=== PATIENT | male | born 1945 | race Two or more races ===

== ENCOUNTER 2016-06-06 09:03 | Emergency (ER) | payer MEDICARE ==
[~2016-06-06] VITALS: Ht 170.2 cm; Wt 61.2 kg
[~2016-06-06 09:03] MED LIST: ASPI81TA2 PO; HYDR-965 PO; HYDR1TAB26 PO; PROP40TA PO
[2016-06-06] MEDS ORDERED: IV NORMAL SALINE 1000ML BAG 1,000 ML IV SCH (09:37)
[2016-06-06] MEDS ORDERED: ONDANSETRON PF 4 MG/2 ML VIAL. IV ONE (09:45)
[2016-06-06] MEDS ORDERED: FENTANYL PF 100 MCG/2 ML VIAL. IV PRN (09:45)
--- NOTE | 2016-06-06 09:53 | PHYS DOC ---
Past Medical History Past Medical History: Arthritis, Hypertension, Other Additional Past Medical Histor: chronic back pain Past Surgical History: Knee Replacement, Other Additional Past Surgical Histo: hernia repair, orthopedic. Additional Information: 2 CIGARETTES A DAY Alcohol Use: None Drug Use: None Adult General Chief Complaint Chief Complaint: ABDOMINAL PAIN HPI HPI Patient is a 71 year old male who presents with complaint of left flank pain. Patient has been having pain for the past 2 days. Patient states that the pain is sharp and located along his left side and radiates to his left groin. Patient states he has had history of kidney stones but typically has had symptoms on his right side. Patient states that his current symptoms feel similar. Patient complains of 7 out of 10 pain. Patient took aspirin yesterday with no relief in symptoms. Patient has not had any associated nausea, vomiting , fever, bloody stools, or blood in his urine. Review of Systems Review of Systems Constitutional: Denies fever or chills [] Eyes: Denies change in visual acuity, redness, or eye pain [] HENT: Denies nasal congestion or sore throat [] Respiratory: Denies cough or shortness of breath [] Cardiovascular: Denies chest pain or edema [] GI: Denies abdominal pain, nausea, vomiting, bloody stools or diarrhea [] : Denies dysuria or hematuria [] Musculoskeletal: Left flank pain [] Integument: Denies rash or skin lesions [] Neurologic: Denies headache, focal weakness or sensory changes [] Current Medications Current Medications Current Medications Medications (Trade) Dose Ordered Sig/Oli Start Time Stop Time Status Last Admin Dose Admin Fentanyl Citrate 50 mcg 50 mcg PRN Q15MIN PRN 06/06/16 09:45 06/07/16 09:44 06/06/16 10:11 50 MCG Ketorolac Tromethamine (Toradol) 30 mg 1X ONCE 06/06/16 11:00 06/06/16 11:01 Ondansetron HCl (Zofran) 4 mg 1X ONCE 06/06/16 09:45 06/06/16 09:46 DC 06/06/16 10:11 4 MG Sodium Chloride (Iv Sodium Chloride 0.9% 1000ml Bag) 1,000 ml @ 1,000 mls/hr Q1H 06/06/16 09:37 06/06/16 10:36 DC 06/06/16 10:11 1,000 MLS/HR Allergies Allergies Allergies Coded Allergies Type Severity Reaction Last Updated Verified No Known Drug Allergies 07/07/13 No Physical Exam Physical Exam Constitutional: Alert, afebrile, appears in mild to moderate discomfort. [] HENT: Normocephalic, atraumatic, bilateral external ears normal, oropharynx moist, no oral exudates, nose normal. [] Eyes: PERRLA, EOMI, conjunctiva normal, no discharge. [] Neck: Normal range of motion, no tenderness, supple, no stridor. [] Cardiovascular:Heart rate regular rhythm, no murmur [] Lungs & Thorax: Bilateral breath sounds clear to auscultation [] Abdomen: Bowel sounds normal, soft, left upper quadrant abdominal tenderness at the midaxillary line, no masses, no pulsatile masses. [] Skin: Warm, dry, no erythema, no rash. [] Back: No midline tenderness, no direct CVA tenderness, no flank ecchymosis. [] Extremities: No tenderness, no cyanosis, no clubbing, ROM intact, no edema. [] Neurologic: Alert and oriented X 3, normal motor function, normal sensory function, no focal deficits noted. [] Current Patient Data Vital Signs Vital Signs Date Time Temp Pulse Resp B/P Pulse Ox O2 Delivery O2 Flow Rate FiO2 06/06/16 10:11 20 99 Room Air 06/06/16 09:21 98.2 97 178/82 98.2 Lab Values Laboratory Tests Test 06/06/16 09:50 White Blood Count 8.8x10^3/uL (4.0-11.0) Red Blood Count 4.07x10^6/uL (4.30-5.70) L Hemoglobin 12.9g/dL (13.0-17.5) L Hematocrit 37.8% (39.0-53.0) L Mean Corpuscular Volume 93fL (79-100) Mean Corpuscular Hemoglobin 32pg (25-35) Mean Corpuscular Hemoglobin Concent 34g/dL (31-37) Red Cell Distribution Width 14.4% (11.5-14.5) Platelet Count 208x10^3/uL (140-400) Neutrophils (%) (Auto) 73% (31-73) Lymphocytes (%) (Auto) 18% (24-48) L Monocytes (%) (Auto) 7% (0-9) Eosinophils (%) (Auto) 2% (0-3) Basophils (%) (Auto) 1% (0-3) Neutrophils # (Auto) 6.4x10^3uL (1.8-7.7) Lymphocytes # (Auto) 1.6x10^3/uL (1.0-4.8) Monocytes # (Auto) 0.6x10^3/uL (0.0-1.1) Eosinophils # (Auto) 0.2x10^3/uL (0.0-0.7) Basophils # (Auto) 0.1x10^3/uL (0.0-0.2) Urine Collection Type Unknown Urine Color Yellow Urine Clarity Clear Urine pH 6.5 Urine Specific [place] 1.015 Urine Protein Negativemg/dL (NEG-TRACE) Urine Glucose (UA) Negativemg/dL (NEG) Urine Ketones (Stick) Negativemg/dL (NEG) Urine Blood Small (NEG) Urine Nitrite Negative (NEG) Urine Bilirubin Negative (NEG) Urine Urobilinogen Dipstick 1.0mg/dL (0.2 mg/dL) Urine Leukocyte Esterase Negative (NEG) Urine RBC 6-10/HPF (0-2) Urine WBC 0/HPF (0-4) Urine Squamous Epithelial Cells Few/LPF Urine Bacteria 0/HPF (0-FEW) Sodium Level 142mmol/L (136-145) Potassium Level 3.7mmol/L (3.5-5.1) Chloride Level 107mmol/L (98-107) Carbon Dioxide Level 28mmol/L (21-32) Anion Gap 7 (6-14) Blood Urea Nitrogen 16mg/dL (8-26) Creatinine 1.0mg/dL (0.7-1.3) Estimated GFR (Cockcroft-Gault) 74.1 BUN/Creatinine Ratio 16 (6-20) Glucose Level 129mg/dL (70-99) H Calcium Level 8.5mg/dL (8.5-10.1) Total Bilirubin 0.2mg/dL (0.2-1.0) Aspartate Amino Transferase (AST) 18U/L (15-37) Alanine Aminotransferase (ALT) 20U/L (16-63) Alkaline Phosphatase 97U/L (46-116) Total Protein 7.0g/dL (6.4-8.2) Albumin 3.1g/dL (3.4-5.0) L Albumin/Globulin Ratio 0.8 (1.0-1.7) L Lipase 141U/L (73-393) Laboratory Tests 06/06/16 09:50 Laboratory Tests 06/06/16 09:50 EKG EKG Not performed [] Radiology/Procedures Radiology/Procedures [facility] [address] [place] [address] IMAGING REPORT Signed PATIENT: JAYDE GIFFORD ACCOUNT: [id number] : 1945 LOCATION: ER AGE: 71 SEX: M EXAM STATUS: REG ER ORD. PHYSICIAN: JERRY HARRINGTON MD REASON: left flank pain, history kidney stones PROCEDURE: ABDOMEN PELVIS WO CONTRAST ABDOMEN PELVIS WO CONTRAST History:Left flank pain, history of kidney stones. Technique: Noncontrast CT imaging was performed of the abdomen and pelvis, multiplanar reconstruction images submitted. Exposure: One or more of the following individualized dose reduction techniques were utilized for this exam: 1. Automated exposure control. 2. Adjustment of the mA and/or KV according to patient size. 3. Use of iterative reconstruction technique. Comparison: 03/11/2013 Findings:There are 3 small calculi of the right kidney up to 1 to 2 mm in size, approximate 6 calculi of the left kidney with the largest 2 to 3 mm. There is very mild left hydroureteronephrosis although no left ureteral calculus identified. There is no hydronephrosis on the right. There is calcification of the right posterior urinary bladder believed to be in the lumen, measuring 3 mm in size and not seen on previous exam. There is no significant abnormality of the limited visualized lung bases. There are fat-containing Bochdalek hernias bilaterally. Gallbladder is present without obvious intraluminal abnormality by CT. Accurate evaluation of the abdominal visceral organs is limited without intravenous contrast. There is no obvious focal abnormality of the liver, spleen, pancreas. Evaluation of bowel is limited without oral contrast. There is no significant bowel dilatation, free air, free fluid. There is multilevel lumbar facet degenerative change. There is mild/moderate degenerative disc disease at L3-4 and L4-5, mild spondylosis. Impression: 1.There is mild left hydroureteronephrosis although no ureteral calculus identified. There is a 3 mm calculus in the right urinary bladder lumen dependently likely due to recently passed calculus. There are bilateral renal calculi. DICTATED and SIGNED BY: CLIFFORD ANDERSEN MD DATE: 06/06/16 1018 CC: JERRY HARRINGTON MD; NO PCP ~ [] Course & Med Decision Making Course & Med Decision Making Pertinent Labs and Imaging studies reviewed. (See chart for details) The CT scan showed dilation of the left ureter with a calcification within the bladder lumen. This likely represents a recently passed ureteral stone which is the likely cause of the patient's symptoms. On reevaluation after treatment with fentanyl, Zofran, and IV fluid, the patient states he feels much better at this time. Patient was also given IV Toradol in the emergency department to further assist with pain control. Advised patient to follow-up with his primary doctor in the next 3-5 days. Patient will be given a small prescription and Dumas for any recurrent pain. Advised return to emergency department for any worsening symptoms. Patient voiced understanding and in agreement with treatment plan. Dragon Disclaimer Dragon Disclaimer This electronic medical record was generated, in whole or in part, using a voice recognition dictation system. Departure Departure Impression: Primary Impression: Ureteral colic Disposition: 01 HOME, SELF-CARE Condition: IMPROVED Referrals: NO PCP (PCP) Patient Instructions: Kidney Stones Additional Instructions: Follow-up with your primary doctor in 3-5 days. Use a urine strainer to ensure passage of stone. Return to the emergency department for any worsening symptoms. Scripts Hydrocodone/Apap 5-325 (Dumas 5-325 Tablet)1 Each Tablet1 Tab PO Q6HRS PRN PAIN #10 TAB Prov:JERRY HARRINGTON MD 06/06/16 JERRY HARRINGTON MD Jun 06, 2016 09:53
[2016-06-06 10:04] LABS: BILIRUBIN,URINE NEGATIVE (NEG); GLUCOSE,URINE NEGATIVE (NEG); NITRITE,URINE NEGATIVE (NEG); PH,URINE 6.5; PROTEIN,URINE NEGATIVE (NEG-TRACE)
[2016-06-06 10:05] LABS: BASO # 0.1 x10^3/uL (0.0-0.2); BASO % 1 % (0-3); EOS % 2 % (0-3); HEMATOCRIT 37.8 % (39.0-53.0); HEMOGLOBIN 12.9 g/dL (13.0-17.5); LYMPH # 1.6 x10^3/uL (1.0-4.8); LYMPH % 18 % (24-48); MEAN CORPUSCULAR HEMOGLOBIN 32 pg (25-35); MEAN CORPUSCULAR HGB CONC 34 g/dL (31-37); MEAN CORPUSCULAR VOLUME 93 fL (79-100); MONO % 7 % (0-9); NEUT % 73 % (31-73); PLATELET COUNT 208 x10^3/uL (140-400); RED BLOOD COUNT 4.07 x10^6/uL (4.30-5.70); RED CELL DISTRIBUTION WIDTH 14.4 % (11.5-14.5); WHITE BLOOD COUNT 8.8 x10^3/uL (4.0-11.0)
[2016-06-06 10:12] LABS: BACTERIA,URINE 0 /HPF (0-FEW); SQUAMOUS EPITHELIAL CELL,UR FEW /LPF; WBC,URINE 0 /HPF (0-4)
[2016-06-06 10:24] LABS: CALCIUM 8.5 mg/dL (8.5-10.1); GFR 74.1; POTASSIUM 3.7 mmol/L (3.5-5.1)
--- NOTE | 2016-06-06 10:28 | RAD ---
ABDOMEN PELVIS WO CONTRAST History:Left flank pain, history of kidney stones. Technique: Noncontrast CT imaging was performed of the abdomen and pelvis, multiplanar reconstruction images submitted. Exposure: One or more of the following individualized dose reduction techniques were utilized for this exam: 1. Automated exposure control. 2. Adjustment of the mA and/or KV according to patient size. 3. Use of iterative reconstruction technique. Comparison: 03/11/2013 Findings:There are 3 small calculi of the right kidney up to 1 to 2 mm in size, approximate 6 calculi of the left kidney with the largest 2 to 3 mm. There is very mild left hydroureteronephrosis although no left ureteral calculus identified. There is no hydronephrosis on the right. There is calcification of the right posterior urinary bladder believed to be in the lumen, measuring 3 mm in size and not seen on previous exam. There is no significant abnormality of the limited visualized lung bases. There are fat-containing Bochdalek hernias bilaterally. Gallbladder is present without obvious intraluminal abnormality by CT. Accurate evaluation of the abdominal visceral organs is limited without intravenous contrast. There is no obvious focal abnormality of the liver, spleen, pancreas. Evaluation of bowel is limited without oral contrast. There is no significant bowel dilatation, free air, free fluid. There is multilevel lumbar facet degenerative change. There is mild/moderate degenerative disc disease at L3-4 and L4-5, mild spondylosis. Impression: 1.There is mild left hydroureteronephrosis although no ureteral calculus identified. There is a 3 mm calculus in the right urinary bladder lumen dependently likely due to recently passed calculus. There are bilateral renal calculi.
[2016-06-06 10:30] LABS: ALBUMIN 3.1 g/dL (3.4-5.0); ALBUMIN/GLOBULIN RATIO 0.8 (1.0-1.7); TOTAL BILIRUBIN 0.2 mg/dL (0.2-1.0)
[2016-06-06] MEDS ORDERED: HYDR-971 PO (10:57)
[2016-06-06] MEDS ORDERED: KETOROLAC TROMETHAMINE 30 MG/ML SYRINGE. IV ONE (11:00)
[2016-06-06 11:03] VITALS: BP 175/77
== END 2016-06-06 11:33 | disposition home or self-care (01) ==
LOC: ER 09:03
DX: N23 Unspecified renal colic (principal); I10 Essential (primary) hypertension; G89.29 Other chronic pain; M19.90 Unspecified osteoarthritis, unspecified site; F17.210 Nicotine dependence, cigarettes, uncomplicated; Z98.890 Other specified postprocedural states
CPT/HCPCS: 36415; 74176; 80053; 81001; 83690; 85027; 96361; 96374; 96375; 99285; J1885; J2405; J3010; J7030

== ENCOUNTER 2018-06-05 14:29 | Emergency (ER) | payer MEDICARE ==
[~2018-06-05] VITALS: Ht 170.2 cm; Wt 59.4 kg
[~2018-06-05 14:29] MED LIST changes: +ASPI-630 PO; -ASPI81TA2 PO; +HYDR-3164 PO; +HYDR-3165 PO; -HYDR-965 PO
[2018-06-05 15:31] LABS: BASO # 0.1 x10^3/uL (0.0-0.2); BASO % 1 % (0-3); EOS % 1 % (0-3); HEMATOCRIT 41.6 % (39.0-53.0); HEMOGLOBIN 13.7 g/dL (13.0-17.5); LYMPH # 1.8 x10^3/uL (1.0-4.8); LYMPH % 20 % (24-48); MEAN CORPUSCULAR HEMOGLOBIN 31 pg (25-35); MEAN CORPUSCULAR HGB CONC 33 g/dL (31-37); MEAN CORPUSCULAR VOLUME 95 fL (79-100); MONO # 0.5 x10^3/uL (0.0-1.1); MONO % 6 % (0-9); NEUT # 6.5 x10^3uL (1.8-7.7); NEUT % 73 % (31-73); PLATELET COUNT 345 x10^3/uL (140-400); RED BLOOD COUNT 4.38 x10^6/uL (4.30-5.70)
[2018-06-05 15:32] LABS: BILIRUBIN,URINE SMALL (NEG); CLARITY,URINE CLEAR; COLOR,URINE YELLOW; NITRITE,URINE NEGATIVE (NEG); PH,URINE 5.5; PROTEIN,URINE 100 mg/dL (NEG-TRACE)
[2018-06-05 15:41] LABS: CALCIUM 9.2 mg/dL (8.5-10.1); GFR 73.7; POTASSIUM 3.6 mmol/L (3.5-5.1)
[2018-06-05 15:43] LABS: BACTERIA,URINE 0 /HPF (0-FEW); RBC,URINE RARE /HPF (0-2); WBC,URINE RARE /HPF (0-4)
[2018-06-05] MEDS ORDERED: ONDANSETRON PF 4 MG/2 ML VIAL. IV ONE (15:45)
[2018-06-05] MEDS ORDERED: fentaNYL PF VIAL 100 MCG/2 ML VIAL IV ONE (15:45)
[2018-06-05 15:48] LABS: ALBUMIN 3.7 g/dL (3.4-5.0); ALBUMIN/GLOBULIN RATIO 0.8 (1.0-1.7); TOTAL BILIRUBIN 0.2 mg/dL (0.2-1.0); TOTAL PROTEIN 8.2 g/dL (6.4-8.2)
--- NOTE | 2018-06-05 15:50 | RAD ---
PQRS Compliance statement: One or more of the following individualized dose reduction techniques were utilized for this examination: 1. Automated exposure control. 2. Adjustment of the mA and/or kV according to patient size. 3. Use of iterative reconstruction technique. Indication:Severe right flank pain TECHNIQUE: CT abdomen and pelvis without IV contrast with multiplanar reformats. COMPARISON: 06/06/2016 FINDINGS: Limited evaluation of solid abdominal and pelvic organs due to lack of IV contrast. Heart is normal in size. No pericardial or pleural effusion. Clear lung bases. Noncontrast appearance of the liver, spleen, gallbladder, pancreas, adrenals within normal limits. No right nephrolithiasis or hydronephrosis. 4 3-4 mm nonobstructing stones in the left kidney. No free pelvic fluid or ascites. No enlarged retroperitoneal or pelvic adenopathy. Mild diffuse atherosclerotic disease of the abdominal aorta. No bowel obstruction. Appendix is not visualized. No pneumoperitoneum. The prostate and seminal vesicles show no large mass. Urinary bladder demonstrates no radiopaque stones. No suspicious bony lesion. Impression: Limited evaluation of solid abdominal and pelvic organs due to lack of IV contrast. 1. Few nonobstructing left renal stones. No right-sided nephrolithiasis or hydronephrosis. Electronically signed by: Ahsan Garcia DO (06/05/2018 3:46 PM) [facility]
[2018-06-05 16:00] VITALS: BP 152/70
--- NOTE | 2018-06-05 16:02 | PHYS DOC ---
Past Medical History Past Medical History: Arthritis, Hypertension, Other Additional Past Medical Histor: chronic back pain Past Surgical History: Knee Replacement, Other Additional Past Surgical Histo: hernia repair, RT KNEE, LT FOOT Alcohol Use: None Drug Use: None Adult General Chief Complaint Chief Complaint: FLANK PAIN HPI HPI Patient is a 73 year old male who presents with right flank pain a history of kidney stones. The patient states that the pain is worsened over the past two days. He denies blood in his urine, nausea or vomiting. He has been taking over- the-counter pain medication with little relief. Review of Systems Review of Systems Constitutional: Denies fever or chills [] Eyes: Denies change in visual acuity, redness, or eye pain [] HENT: Denies nasal congestion or sore throat [] Respiratory: Denies cough or shortness of breath [] Cardiovascular: No additional information not addressed in HPI [] GI: Denies abdominal pain, nausea, vomiting, bloody stools or diarrhea [] : See history of present illness Musculoskeletal: See history of present illness Integument: Denies rash or skin lesions [] Neurologic: Denies headache, focal weakness or sensory changes [] Endocrine: Denies polyuria or polydipsia [] All other systems were reviewed and found to be within normal limits, except as documented in this note. Current Medications Current Medications Current Medications Medications (Trade) Dose Ordered Sig/Oli Start Time Stop Time Status Last Admin Dose Admin Fentanyl Citrate (Fentanyl 2ml Vial) 50 mcg 1X ONCE 06/05/18 15:45 06/05/18 15:46 DC 06/05/18 15:47 50 MCG Ondansetron HCl (Zofran) 4 mg 1X ONCE 06/05/18 15:45 06/05/18 15:46 DC 06/05/18 15:47 4 MG Allergies Allergies Allergies Coded Allergies Type Severity Reaction Last Updated Verified No Known Drug Allergies 07/07/13 No Physical Exam Physical Exam Constitutional: Well developed, well nourished, no acute distress, non-toxic appearance. [] HENT: Normocephalic, atraumatic, bilateral external ears normal, oropharynx moist, no oral exudates, nose normal. [] Eyes: PERRLA, EOMI, conjunctiva normal, no discharge. [] Neck: Normal range of motion, no tenderness, supple, no stridor. [] Cardiovascular:Heart rate regular rhythm, no murmur [] Lungs & Thorax: Bilateral breath sounds clear to auscultation [] Abdomen: Bowel sounds normal, soft, no tenderness, no masses, no pulsatile masses. [] Skin: Warm, dry, no erythema, no rash. [] Back: No point spinal tenderness, tenderness to right flank. [] Extremities: No tenderness, no cyanosis, no clubbing, ROM intact, no edema. [] Neurologic: Alert and oriented X 3, normal motor function, normal sensory function, no focal deficits noted. [] Psychologic: Affect normal, judgement normal, mood normal. [] Current Patient Data Vital Signs Vital Signs Date Time Temp Pulse Resp B/P (MAP) Pulse Ox O2 Delivery O2 Flow Rate FiO2 06/05/18 16:00 101 18 152/70 (97) 99 06/05/18 14:52 98.6 Room Air 98.6 Lab Values Laboratory Tests Test 06/05/18 14:45 06/05/18 14:50 Urine Collection Type Unknown Urine Color Yellow Urine Clarity Clear Urine pH 5.5 Urine Specific [place] 1.025 Urine Protein 100 mg/dL (NEG-TRACE) Urine Glucose (UA) Negative mg/dL (NEG) Urine Ketones (Stick) Negative mg/dL (NEG) Urine Blood Negative (NEG) Urine Nitrite Negative (NEG) Urine Bilirubin Small (NEG) Urine Urobilinogen Dipstick 1.0 mg/dL (0.2 mg/dL) Urine Leukocyte Esterase Negative (NEG) Urine RBC Rare /HPF (0-2) Urine WBC Rare /HPF (0-4) Urine Bacteria 0 /HPF (0-FEW) Urine Mucus Slight /LPF White Blood Count 9.0 x10^3/uL (4.0-11.0) Red Blood Count 4.38 x10^6/uL (4.30-5.70) Hemoglobin 13.7 g/dL (13.0-17.5) Hematocrit 41.6 % (39.0-53.0) Mean Corpuscular Volume 95 fL (79-100) Mean Corpuscular Hemoglobin 31 pg (25-35) Mean Corpuscular Hemoglobin Concent 33 g/dL (31-37) Red Cell Distribution Width 14.0 % (11.5-14.5) Platelet Count 345 x10^3/uL (140-400) Neutrophils (%) (Auto) 73 % (31-73) Lymphocytes (%) (Auto) 20 % (24-48) L Monocytes (%) (Auto) 6 % (0-9) Eosinophils (%) (Auto) 1 % (0-3) Basophils (%) (Auto) 1 % (0-3) Neutrophils # (Auto) 6.5 x10^3uL (1.8-7.7) Lymphocytes # (Auto) 1.8 x10^3/uL (1.0-4.8) Monocytes # (Auto) 0.5 x10^3/uL (0.0-1.1) Eosinophils # (Auto) 0.0 x10^3/uL (0.0-0.7) Basophils # (Auto) 0.1 x10^3/uL (0.0-0.2) Sodium Level 141 mmol/L (136-145) Potassium Level 3.6 mmol/L (3.5-5.1) Chloride Level 102 mmol/L (98-107) Carbon Dioxide Level 25 mmol/L (21-32) Anion Gap 14 (6-14) Blood Urea Nitrogen 16 mg/dL (8-26) Creatinine 1.0 mg/dL (0.7-1.3) Estimated GFR (Cockcroft-Gault) 73.7 BUN/Creatinine Ratio 16 (6-20) Glucose Level 115 mg/dL (70-99) H Calcium Level 9.2 mg/dL (8.5-10.1) Total Bilirubin 0.2 mg/dL (0.2-1.0) Aspartate Amino Transferase (AST) 18 U/L (15-37) Alanine Aminotransferase (ALT) 18 U/L (16-63) Alkaline Phosphatase 110 U/L (46-116) Total Protein 8.2 g/dL (6.4-8.2) Albumin 3.7 g/dL (3.4-5.0) Albumin/Globulin Ratio 0.8 (1.0-1.7) L Laboratory Tests 06/05/18 14:50 Laboratory Tests 06/05/18 14:50 EKG EKG [] Radiology/Procedures Radiology/Procedures [] PATIENT: JAYDE GIFFORD ACCOUNT: [id number] : 1945 LOCATION: ER AGE: 73 SEX: M EXAM STATUS: REG ER ORD. PHYSICIAN: GAGAN ALEXANDRE APRN REASON: severe right flank pain PROCEDURE: CT ABDOMEN PELVIS WO CONTRAST PQRS Compliance statement: One or more of the following individualized dose reduction techniques were utilized for this examination: 1. Automated exposure control. 2. Adjustment of the mA and/or kV according to patient size. 3. Use of iterative reconstruction technique. Indication:Severe right flank pain TECHNIQUE: CT abdomen and pelvis without IV contrast with multiplanar reformats. COMPARISON: 06/06/2016 FINDINGS: Limited evaluation of solid abdominal and pelvic organs due to lack of IV contrast. Heart is normal in size. No pericardial or pleural effusion. Clear lung bases. Noncontrast appearance of the liver, spleen, gallbladder, pancreas, adrenals within normal limits. No right nephrolithiasis or hydronephrosis. 4 3-4 mm nonobstructing stones in the left kidney. No free pelvic fluid or ascites. No enlarged retroperitoneal or pelvic adenopathy. Mild diffuse atherosclerotic disease of the abdominal aorta. No bowel obstruction. Appendix is not visualized. No pneumoperitoneum. The prostate and seminal vesicles show no large mass. Urinary bladder demonstrates no radiopaque stones. No suspicious bony lesion. Impression: Limited evaluation of solid abdominal and pelvic organs due to lack of IV contrast. 1. Few nonobstructing left renal stones. No right-sided nephrolithiasis or hydronephrosis. Electronically signed by: Ahsan Sanders DO (06/05/2018 3:46 PM) [facility] DICTATED and SIGNED BY: AHSAN SANDERS DO DATE: 06/05/18 1542 Course & Med Decision Making Course & Med Decision Making Pertinent Labs and Imaging studies reviewed. (See chart for details) []Imaging was negative for right stones, patient is negative for urinary tract infection. Dragon Disclaimer Dragon Disclaimer This electronic medical record was generated, in whole or in part, using a voice recognition dictation system. Departure Departure Impression: Primary Impression: Right flank pain Disposition: 01 HOME, SELF-CARE Condition: STABLE Referrals: UNKNOWN PCP NAME (PCP) Patient Instructions: Flank Pain Additional Instructions: Follow-up with your primary care provider for further evaluation of this flank pain. No acute cause was found in the emergency department for this pain. You may take ibuprofen or Tylenol for pain. If worsening return to the emergency department. GAGAN ALEXANDRE APRN Jun 05, 2018 16:02
== END 2018-06-05 16:38 | disposition home or self-care (01) ==
LOC: ER 14:29
DX: R10.9 Unspecified abdominal pain (principal); G89.29 Other chronic pain; I10 Essential (primary) hypertension; Z98.890 Other specified postprocedural states
CPT/HCPCS: 36415; 74176; 80053; 81001; 85025; 96374; 96375; 99284; J2405; J3010